=== PATIENT | female | born 1970 | race Caucasian/White ===

== ENCOUNTER 2017-01-01 09:09 | Emergency (ER) | payer OTHER ==
[~2017-01-01 09:09] MED LIST: ASPIRIN EC81 MG PO; LANTUS100 UNIT/1 SQ; MAXZIDE PO; NOVOLOG VI100 UNIT/1 SQ
== END 2017-01-01 12:43 | disposition home or self-care (01) ==
LOC: FER 09:09
DX: I82.811 Embolism and thrombosis of superficial veins of right lower extremity (principal); E10.9 Type 1 diabetes mellitus without complications; Z79.4 Long term (current) use of insulin; Z79.82 Long term (current) use of aspirin
CPT/HCPCS: 93971